=== PATIENT | female | born 1945 | race Caucasian/White ===

== ENCOUNTER → 2017-03-19 | Outpatient (CLI) | payer MEDICARE | END | disposition home or self-care (01) | LOC: CARD 08:00 | DX: I48.0 Paroxysmal atrial fibrillation (principal); I47.2 Ventricular tachycardia; I10 Essential (primary) hypertension ==

== ENCOUNTER → 2017-04-17 | Outpatient (CLI) | payer MEDICARE | END | disposition home or self-care (01) | LOC: RAD 14:44 | DX: R06.02 Shortness of breath (principal); G47.30 Sleep apnea, unspecified; E11.9 Type 2 diabetes mellitus without complications; I10 Essential (primary) hypertension; Z86.79 Personal history of other diseases of the circulatory system; Z86.11 Personal history of tuberculosis ==

== ENCOUNTER 2017-06-13 01:08 | Emergency (ER) | payer MEDICARE ==
[~2017-06-13] VITALS: Ht 170.1 cm; Wt 83.9 kg
[2017-06-13 01:53] LABS: BASO % 0.3 % (0.0-1.0); EOS # 0.1 10*3/uL (0.0-0.4); EOS % 1.2 % (1.0-4.0); HEMATOCRIT 33.9 % (37.0-47.0); HEMOGLOBIN 10.7 g/dl (12.0-16.0); LYMPH # 2.2 10*3/uL (1.3-4.4); LYMPH % 38.9 % (27.0-41.0); MEAN CELL VOLUME 86.5 fl (81.0-99.0); MEAN CORPUSCULAR HGB 27.3 pg (27.0-31.0); MEAN CORPUSCULAR HGB CONC 31.6 g/dl (33.0-37.0); MONO # 0.8 10*3/uL (0.1-1.0); NEUT # 2.6 10*3/uL (2.3-7.9); NEUT % 45.9 % (47.0-73.0); PLATELET COUNT AUTOMATED 358 10*3/uL (130-400); RED BLOOD COUNT 3.92 10*6/uL (4.10-5.10); RED CELL DISTRI WIDTH 14.7 % (0-14.5); WHITE BLOOD COUNT 5.8 10*3/uL (4.8-10.8)
[2017-06-13 01:54] LABS: BILIRUBIN NEGATIVE (NEGATIVE); BLOOD NEGATIVE (NEGATIVE); CLARITY CLEAR (CLEAR); COLOR YELLOW (YELLOW); GLUCOSE 3+ (NEGATIVE); KETONE NEGATIVE (NEGATIVE); LEUKO ESTERASE TRACE (NEGATIVE); NITRITE NEGATIVE (NEGATIVE); PH 5.5 (5.0-9.0); SPECIFIC GRAVITY <= 1.005 (1.005-1.030); UROBILINOGEN 0.2 E.U./dl (0.2-1.0)
[2017-06-13 02:03] LABS: ACT PARTIAL THROMBO TIME 39.1 SECONDS (20.8-31.5); INTERNATIONAL NORM RATIO 1.2 (2.0-3.5)
[2017-06-13 02:06] LABS: BACTERIA 1+
[2017-06-13 02:11] LABS: ALBUMIN 3.3 gm/dl (3.1-4.5); ALKALINE PHOSPHATASE 134 U/L (45-117); BUN 18 mg/dl (7-24); CHLORIDE 102 mmol/L (98-107); CKMB 1.6 ng/ml (0.5-3.6); CPK 111 U/L (26-192); CREATININE 0.83 mg/dL (0.55-1.02); LIPASE 335 U/L (73-393); MAGNESIUM 1.9 mg/dL (1.5-2.1); POTASSIUM 3.9 mmol/L (3.5-5.1); SGOT/AST 16 IU/L (3-35); SGPT/ALT 22 U/L (12-78); SODIUM 135 mmol/L (136-145); TOTAL PROTEIN 7.8 gm/dL (6.4-8.2)
[2017-06-13 02:13] LABS: TROPONIN I < 0.015 ng/ml (<0.045)
== END 2017-06-13 03:14 | disposition home or self-care (01) ==
LOC: ED 01:08
PROVIDERS: Student in an Organized Health Care Education/Training Program
DX: R73.9 Hyperglycemia, unspecified (principal); Z88.8 Allergy status to other drugs, medicaments and biological substances

== ENCOUNTER → 2023-12-25 | Outpatient (CLI) | payer MEDICARE ==
[~2023-12-25] MED LIST: DALVANCE500 MG IV; DULOXETINE HCL60 MG PO; HUMALOG100 UNIT/1 SC; LANTUS SOL100 UNIT/1 SC; LASIX20 MG PO; LISINOPRIL40 MG PO; METOPROLOL TART50 M1 PO; N-ACETYL-L-CYS600 M1 PO; NEXIUM40 MG PO; VICTOZA 2-0.6 MG/0.1 SQ; XARELTO20 M1 PO
== END | disposition home or self-care (01) ==
LOC: RESCLI 12-24 03:37
PROVIDERS: ATTEND Internal Medicine
DX: E11.40 Type 2 diabetes mellitus with diabetic neuropathy, unspecified (principal); I48.91 Unspecified atrial fibrillation; R60.9 Edema, unspecified; E78.5 Hyperlipidemia, unspecified; L98.9 Disorder of the skin and subcutaneous tissue, unspecified; M86.9 Osteomyelitis, unspecified; Z88.8 Allergy status to other drugs, medicaments and biological substances; Z88.5 Allergy status to narcotic agent; Z98.890 Other specified postprocedural states; Z79.899 Other long term (current) drug therapy

== ENCOUNTER 2025-01-05 15:41 | Observation (INO) | payer MEDICARE ==
[~2025-01-05] VITALS: Ht 170.1 cm; Wt 80.9 kg
[2025-01-05 15:43] VITALS: BP 139/81
[2025-01-05 16:11] LABS: HEMATOCRIT 39.5 % (37.0-47.0); MEAN CELL VOLUME 93.4 fl (81.0-99.0); MEAN CORPUSCULAR HGB CONC 33.2 g/dl (33.0-37.0); MEAN PLATELET VOLUME 9.1 fl (9.6-12.3); PLATELET COUNT AUTOMATED 335 10*3/uL (130-400); RED BLOOD COUNT 4.23 10*6/uL (4.10-5.10); RED CELL DISTRI WIDTH 11.9 % (0-14.5); WHITE BLOOD COUNT 10.1 10*3/uL (4.8-10.8)
[2025-01-05 16:16] LABS: MANUAL DIFF REFLEX YES
[2025-01-05] MEDS ORDERED: PRALUENT P75 MG/1 ML SQ (16:22)
[2025-01-05] MEDS ORDERED: MOUNJARO5 MG/0.51 SQ (16:23)
[2025-01-05 16:25] LABS: ACT PARTIAL THROMBO TIME 32.5 SECONDS (20.0-32.1)
[2025-01-05 16:33] LABS: ALKALINE PHOSPHATASE 104 U/L (46-116); BUN 19 mg/dl (9-23); CHLORIDE 94 mmol/L (98-107); POTASSIUM 3.9 mmol/L (3.4-5.1); SGPT/ALT 16 U/L (5-49); TOTAL PROTEIN 7.5 gm/dL (6.0-8.0)
[2025-01-05 16:35] LABS: BASOPHILS 1 % (0-1); PLATELET SUFFICIENCY NORMAL (NORMAL); TOTAL CELLS COUNTED 100 #CELLS
[2025-01-05 16:36] LABS: OVALOCYTES FEW
[2025-01-05] MEDS ORDERED: fentaNYL CITRATE 100 MCG/2 ML VIAL IV ONE ×2 (17:00→18:45)
[2025-01-05] MEDS ORDERED: MAGNESIUM SULFATE 50 ML IV ONE (17:05)
[2025-01-05 17:30] VITALS: BP 112/60
[2025-01-05 18:56] VITALS: BP 122/72
[2025-01-05 19:54] VITALS: BP 125/70
[2025-01-05] MEDS ORDERED: Magnesium Hydroxide 30 ML UDC PO PRN (20:45)
[2025-01-05] MEDS ORDERED: BISACODYL 10 MG SUPP R PRN (20:45)
[2025-01-05] MEDS ORDERED: ACETAMINOPHEN 650 MG SUPP R PRN (20:45)
[2025-01-05] MEDS ORDERED: Ondansetron Hydrochloride 4 MG/2 ML VIAL IV PRN (20:45)
[2025-01-05] MEDS ORDERED: BISACODYL 5 MG TAB PO PRN (20:45)
[2025-01-05] MEDS ORDERED: ACETAMINOPHEN 325 MG TAB PO PRN (20:45)
[2025-01-05] MEDS ORDERED: ASPIRIN 325 MG TAB PO ONE (20:55)
[2025-01-05] MEDS ORDERED: DEXTROSE 10 % IN WATER 250 ML IV PRN (21:40)
[2025-01-05] MEDS ORDERED: RIVAROXABAN 20 MG TAB PO SCH (22:00)
[2025-01-05] MEDS ORDERED: INSULIN LISPRO 1 UNIT/0.01 ML SQ SCH (22:00)
[2025-01-05] MEDS ORDERED: Metoprolol Tartrate 50 MG TAB PO SCH (22:00)
[2025-01-05] MEDS ORDERED: SODIUM CHLORIDE 0.9% 1,000 ML IV ONE (22:45)
[2025-01-06] MEDS ORDERED: MORPHINE Sulfate 2 MG/ML SYR IV ONE (00:30)
[2025-01-06 02:15] VITALS: BP 80/56
[2025-01-06 03:30] VITALS: BP 92/68
[2025-01-06 06:17] LABS: HEMATOCRIT 35.1 % (37.0-47.0); MEAN CELL VOLUME 93.6 fl (81.0-99.0); MEAN CORPUSCULAR HGB 31.5 pg (27.0-31.0); MEAN CORPUSCULAR HGB CONC 33.6 g/dl (33.0-37.0); MEAN PLATELET VOLUME 9.9 fl (9.6-12.3); PLATELET COUNT AUTOMATED 299 10*3/uL (130-400); RED BLOOD COUNT 3.75 10*6/uL (4.10-5.10); RED CELL DISTRI WIDTH 12.1 % (0-14.5); WHITE BLOOD COUNT 9.8 10*3/uL (4.8-10.8)
[2025-01-06 06:23] LABS: MANUAL DIFF REFLEX YES
[2025-01-06] MEDS ORDERED: Regadenoson 0.4 MG/5 ML SYR IV ONE (06:29)
[2025-01-06 06:44] LABS: ALKALINE PHOSPHATASE 93 U/L (46-116); BUN 18 mg/dl (9-23); CHLORIDE 98 mmol/L (98-107); CHOLESTEROL 118 mg/dL (<200); FREE T4 1.26 ng/dl (0.89-1.76); LDL CHOLESTEROL 57 mg/dL (9-159); POTASSIUM 4.1 mmol/L (3.4-5.1); SGPT/ALT 13 U/L (5-49); TOTAL PROTEIN 6.5 gm/dL (6.0-8.0); TRIGLYCERIDES 165 mg/dl (<150)
[2025-01-06 07:18] LABS: BASOPHILS 1 % (0-1); TOTAL CELLS COUNTED 100 #CELLS
[2025-01-06 07:19] LABS: BURR CELLS FEW; PLATELET SUFFICIENCY NORMAL (NORMAL); POLYCHROMASIA SLIGHT
[2025-01-06] MEDS ORDERED: PRALUENT 75 MG SQ SCH (10:00)
[2025-01-06] MEDS ORDERED: Pantoprazole Sodium 40 MG TAB PO SCH (10:00)
[2025-01-06] MEDS ORDERED: LISINOPRIL 40 MG TAB PO SCH (10:00)
[2025-01-06] MEDS ORDERED: ASPIRIN ENTERIC COATED 81 MG TAB PO SCH (11:00)
[2025-01-06 12:00] VITALS: BP 108/61
[2025-01-06] MEDS ORDERED: IOHEXOL 350 MG/ML 100 ML VIAL IV ONE (13:10)
[2025-01-06] MEDS ORDERED: SODIUM CHLORIDE 0.9% 100 ML BAG IV ONE (13:10)
[2025-01-06] MEDS ORDERED: DOXYCYCLINE HY100 M3 PO (15:24)
[2025-01-06] MEDS ORDERED: Insulin Glargine, Recombinan 1 UNIT/0.01 ML SC SCH (22:00)
== END 2025-01-06 15:53 | disposition home or self-care (01) ==
LOC: ED 15:41 → EDHOLD 19:00 → 5E 01-06 01:00
PROVIDERS: Nurse Practitioner Family; ADMIT Family Medicine; ATTEND Family Medicine
DX: R07.89 Other chest pain (principal); E87.1 Hypo-osmolality and hyponatremia; E83.52 Hypercalcemia; E11.65 Type 2 diabetes mellitus with hyperglycemia; R79.89 Other specified abnormal findings of blood chemistry; E46 Unspecified protein-calorie malnutrition; E44.1 Mild protein-calorie malnutrition; I48.91 Unspecified atrial fibrillation; I12.9 Hypertensive chronic kidney disease with stage 1 through stage 4 chronic kidney disease, or unspecified chronic kidney disease; E11.22 Type 2 diabetes mellitus with diabetic chronic kidney disease; N18.31 Chronic kidney disease, stage 3a; Z79.4 Long term (current) use of insulin; Z79.899 Other long term (current) drug therapy